=== PATIENT | male | born 1985 | race Caucasian/White ===

== ENCOUNTER 2016-09-26 13:56 | Outpatient (CLI) | payer OTHER ==
--- NOTE | 2016-09-26 16:28 | DIAGNOSTIC IMAGING REPORT ---
PROCEDURE: XR SHOULDER INJECTION (PRE MR) INDICATION: RIGHT SHOULDER STRAIN TECHNIQUE: The patient was advised of the usual risks and complications including infection, bleeding and allergy. Supine RPO position. Following sterile preparation and 1% lidocaine anesthetic, fluoroscopic guidance (2.3 minutes, 492.07 mGy) was utilized to place a 22-gauge spinal needle into the ventral right glenohumeral joint. A 10.1 mL solution (2.5 mL Isovue 200, 2.5 mL 1% lidocaine, 2.5 mL 0.5% Marcaine, 2.5 mL normal saline, 0.1 mL gadolinium) was infused. Subsequently, 2 mL 40 mg/mL Kenalog was infused and the needle was withdrawn. COMPARISON: None. FINDINGS: Five AP views in neutral, internal and external rotation. Confirmation of intraarticular injection. Arthrogram is normal. The patient tolerated the procedure reasonably well and was transferred to MRI in satisfactory condition with instructions to resume routine activity the following day, and to call for any untoward symptoms (increasing pain/swelling). IMPRESSION: 1. Successful fluoroscopically guided diagnostic/therapeutic injection of the right glenohumeral joint (pre MRI). 2. Negative arthrogram of the right shoulder. 3. MR arthrography is pending.
--- NOTE | 2016-09-26 16:53 | DIAGNOSTIC IMAGING REPORT ---
PROCEDURE: MR UPPER EXT JOINT W/CONT-RT INDICATION: RT SHOULDER STRAIN TECHNIQUE: Intraarticular contrast/gadolinium injected earlier in the day. T1, FAT-SAT PD, and FAT-SAT T1 sagittal oblique images. PD, FAT-SAT PD, and FAT-SAT T1 coronal oblique images. T1, FAT-SAT T1, and FAT-SAT PD axial images. COMPARISON: Comparison made to conventional arthrogram earlier today (09/26/2016). FINDINGS: There is a type 2 acromion, but no evidence of impingement. Right acromioclavicular joint is normal. There is mild to moderate coracoid impingement (8 mm). Findings are associated with edema of the ventral subscapularis segment (region of biceps tendon) with partial thickness intrasubstance tear (possible "hidden lesion"). Biceps tendon appears intact. The rest of the rotator cuff is within normal limits. Hypoplasia of the ventral glenoid labrum with hypertrophy of the middle glenohumeral ligament is compatible with normal variant (Jayne complex). There is no evidence of labral tear. Superior and inferior glenohumeral ligaments appear normal. Osseous structures are normal. IMPRESSION: 1. Type II acromion without impingement. 2. Mild to moderate coracoid impingement (8 mm). 3. Findings suggest partial thickness tear of the ventral subscapularis rotator cuff (possible "hidden lesion"), but there is no evidence of full-thickness tear, and adjacent biceps tendon appears intact. 4. Normal variant Jayne complex of the glenoid labrum. No evidence of labral tear.
== END 2016-09-26 23:00 | disposition home or self-care (01) ==
LOC: XR SRH 13:56
PROC: BP181ZZ Fluoroscopy of Right Shoulder using Low Osmolar Contrast (ICD-10-PCS; principal; 2016-09-26)
DX: M25.511 Pain in right shoulder (principal); S43.401A Unspecified sprain of right shoulder joint, initial encounter